=== PATIENT | female | born 1940 | race Caucasian/White ===

== ENCOUNTER 2016-05-04 08:24 | Inpatient (IN) | payer MEDICARE, MEDICAID ==
[~2016-05-04] VITALS: Ht 160 cm; Wt 61.8 kg
[2016-05-04] MEDS ORDERED: OS500 PO (09:05)
[2016-05-04] MEDS ORDERED: MULT-1192 PO (09:05)
[2016-05-04] MEDS ORDERED: MOME17N NASAL (09:05)
[2016-05-04] MEDS ORDERED: NAPR250T2 PO (09:05)
[2016-05-04] MEDS ORDERED: FURO20 PO (09:05)
[2016-05-04] MEDS ORDERED: OMEP20 PO (09:05)
[2016-05-04] MEDS ORDERED: ALBU8HFA IH (09:05)
[2016-05-04] MEDS ORDERED: DULO30CA2 PO (09:05)
[2016-05-04] MEDS ORDERED: RANI150T7 PO (09:05)
[2016-05-04 09:51] LABS: BASOPHILS % (AUTO) 1.2 % (0.0-2.0); EOSINOPHILS % (AUTO) 6.9 % (1.0-6.0); HEMATOCRIT 39.8 % (36-46); LYMPHOCYTES # (AUTO) 1.3 K/uL (1.0-4.8); LYMPHOCYTES % (AUTO) 24.1 % (22.0-44.0); MEAN CORPUSCULAR HEMOGLOBIN 32.3 pg (26.0-34.0); MEAN CORPUSCULAR HGB CONC 32.7 G/dL (31.0-37.0); MEAN CORPUSCULAR VOLUME 99 fL (80-100); MONOCYTES # (AUTO) 0.7 K/uL (0.1-1.0); MONOCYTES % (AUTO) 13.5 % (2.0-9.0); NEUTROPHILS # (AUTO) 2.9 K/uL (1.8-7.7); NEUTROPHILS % (AUTO) 54.3 % (40.0-70.0); PLATELET COUNT (AUTO) 412 K/uL (150-450); RED BLOOD CELL COUNT(AUTO) 4.03 MIL/uL (4.00-5.20); RED CELL DISTRIBUTION WIDTH 15.5 % (11.5-14.5); WHITE BLOOD COUNT (AUTO) 5.3 K/uL (4.5-11.0)
[2016-05-04 10:03] LABS: ANION GAP 10 mmol/L (8-16); CALCIUM, TOTAL 8.4 mg/dL (8.8-10.5); CARBON DIOXIDE 27 mmol/L (22-29); CHLORIDE 100 mmol/L (98-107); CREATININE 0.61 mg/dL (0.60-1.30); GLOMERULAR FILTR. RATE CALC > 60 mL/min (>60); POTASSIUM 3.6 mmol/L (3.5-5.1); SODIUM SERUM 137 mmol/L (136-145); UREA NITROGEN, BLOOD 6 mg/dL (7-18)
[2016-05-04 10:10] LABS: ALANINE AMINOTRANSFERASE 25 U/L (12-78); ALBUMIN 3.3 g/dL (3.4-5.0); ASPARTATE AMINOTRANSFERASE 35 U/L (15-37); BILIRUBIN,TOTAL 0.9 mg/dL (0.1-1.0); TOTAL PROTEIN, SERUM 7.8 g/dL (6.4-8.2)
[2016-05-04] MEDS ORDERED: HALOPERIDOL LACTATE 5 MG/ML VIAL IM ONE (10:15)
[2016-05-04] MEDS ORDERED: LORazepam 2 MG/ML VIAL IM ONE (10:15)
[2016-05-04] MEDS ORDERED: HALOPERIDOL 5 MG TABLET PO PRN (11:45)
[2016-05-04 14:56] LABS: GLUCOSE,POINT OF CARE 103 MG/DL (70-110)
[2016-05-04 17:02] LABS: GLUCOSE,POINT OF CARE 99 MG/DL (70-110)
[2016-05-04] MEDS: ZOLPIDEM TARTRATE 10 MG TABLET PO PRN (22:52)
[2016-05-04] MEDS: LORazepam 2 MG TABLET PO PRN (22:52)
[2016-05-05 00:05] LABS: APPEARANCE,URINE CLOUDY (CLEAR); GLUCOSE, URINE (UA) NEGATIVE (NEGATIVE); KETONES,URINE NEGATIVE (NEGATIVE); LEUKOCYTE ESTERASE ,URINE LARGE (NEGATIVE); OCCULT BLOOD,URINE NEGATIVE (NEGATIVE); PROTEIN,URINE TRACE (NEGATIVE)
[2016-05-05 00:06] LABS: ADD UA MICROSCOPIC YES
[2016-05-05 00:21] LABS: RBC,URINE 0-2 /HPF (0-2); SQUAMOUS EPITHELIAL CELL,UR Moderate /LPF (None Seen)
[2016-05-05 02:04] VITALS: BP 124/74
[2016-05-05] MEDS ORDERED: PNEUMOCOCCAL VACCINE POLYVALENT 0.5 ML VIAL [PPSV23] IM ONE (02:15)
[2016-05-05] MEDS ORDERED: INFLUENZA VIRUS VACCINE QVS 2016-17 (3YR+)/PF 60 MCG/0.5 ML SYRINGE IM ONE (02:15)
[2016-05-05 08:46] VITALS: BP 135/72
[2016-05-05] MEDS: CEPHALEXIN MONOHYDRATE 500 MG CAPSULE PO SCH ×2 (16:31→20:33)
[2016-05-05] MEDS: SULFAMETHOX/TRIMETH DS 800-160 MG/TABLET PO SCH (16:32)
[2016-05-05] MEDS: DIVALPROEX SODIUM 500 MG DR TABLET PO SCH (16:32)
[2016-05-05] MEDS: RisperiDONE 1 MG TABLET PO SCH (16:33)
[2016-05-05 18:15] VITALS: BP 100/60
[2016-05-05] MEDS: LOPERAMIDE HCL 2 MG CAPSULE PO PRN (18:27)
[2016-05-05 21:27] VITALS: BP 142/79
[2016-05-05] MEDS: IBUPROFEN 400 MG TABLET PO PRN (21:30)
[2016-05-05] MEDS: ZOLPIDEM TARTRATE 10 MG TABLET PO PRN (23:01)
[2016-05-06] MEDS: LORazepam 2 MG TABLET PO PRN ×2 (02:03→16:14)
[2016-05-06] MEDS: DIVALPROEX SODIUM 500 MG DR TABLET PO SCH ×3 (08:39→17:00)
[2016-05-06] MEDS: CEPHALEXIN MONOHYDRATE 500 MG CAPSULE PO SCH ×4 (08:40→21:21)
[2016-05-06] MEDS: RisperiDONE 1 MG TABLET PO SCH ×2 (08:40→17:00)
[2016-05-06] MEDS: SULFAMETHOX/TRIMETH DS 800-160 MG/TABLET PO SCH ×2 (08:40→16:14)
[2016-05-06] MEDS: ZOLPIDEM TARTRATE 10 MG TABLET PO PRN (22:38)
[2016-05-07] MEDS: DIVALPROEX SODIUM 500 MG DR TABLET PO SCH ×3 (09:00→16:31)
[2016-05-07] MEDS: RisperiDONE 1 MG TABLET PO SCH ×3 (09:00→16:30)
[2016-05-07] MEDS: SULFAMETHOX/TRIMETH DS 800-160 MG/TABLET PO SCH ×2 (10:09→16:29)
[2016-05-07] MEDS: CEPHALEXIN MONOHYDRATE 500 MG CAPSULE PO SCH ×4 (10:10→20:17)
[2016-05-07] MEDS ORDERED: LOPERAMIDE HCL 2 MG CAPSULE PO PRN (10:30)
[2016-05-07] MEDS ORDERED: POTASSIUM CHLORIDE 20 MEQ ER TABLET PO ONE (15:30)
[2016-05-07 16:20] VITALS: BP 132/79
[2016-05-07] MEDS: LOPERAMIDE HCL 2 MG CAPSULE PO PRN (16:29)
[2016-05-08 00:01] VITALS: BP 147/88
[2016-05-08] MEDS: ZOLPIDEM TARTRATE 10 MG TABLET PO PRN (01:05)
[2016-05-08] MEDS: IBUPROFEN 400 MG TABLET PO PRN ×2 (02:00→13:55)
[2016-05-08] MEDS: DIVALPROEX SODIUM 500 MG DR TABLET PO SCH ×2 (09:00→16:25)
[2016-05-08] MEDS: RisperiDONE 1 MG TABLET PO SCH ×2 (09:00→16:25)
[2016-05-08 09:01] VITALS: BP 127/76
[2016-05-08] MEDS: SULFAMETHOX/TRIMETH DS 800-160 MG/TABLET PO SCH ×2 (09:02→16:27)
[2016-05-08] MEDS: CEPHALEXIN MONOHYDRATE 500 MG CAPSULE PO SCH ×4 (09:02→20:12)
[2016-05-08] MEDS: FUROSEMIDE 40 MG TABLET PO SCH (09:02)
[2016-05-08] MEDS ORDERED: ONDANSETRON HCL 4 MG TABLET PO PRN (10:00)
[2016-05-08 20:35] VITALS: BP 138/80
[2016-05-09 00:28] VITALS: BP 129/79
[2016-05-09] MEDS: IBUPROFEN 400 MG TABLET PO PRN (00:28)
[2016-05-09 08:00] VITALS: BP 142/74
[2016-05-09] MEDS: CEPHALEXIN MONOHYDRATE 500 MG CAPSULE PO SCH ×4 (08:34→20:14)
[2016-05-09] MEDS: SULFAMETHOX/TRIMETH DS 800-160 MG/TABLET PO SCH ×2 (08:34→16:32)
[2016-05-09] MEDS: RisperiDONE 1 MG TABLET PO SCH ×4 (08:34→17:00)
[2016-05-09] MEDS: FUROSEMIDE 40 MG TABLET PO SCH (08:34)
[2016-05-09] MEDS: DIVALPROEX SODIUM 500 MG DR TABLET PO SCH ×2 (08:39→17:00)
[2016-05-09 16:44] VITALS: BP 125/76
[2016-05-09] MEDS ORDERED: RISP1 PO (19:00)
[2016-05-09] MEDS ORDERED: DIVA500T35 PO (19:00)
[2016-05-10 03:50] VITALS: BP 131/77
[2016-05-10] MEDS ORDERED: CEPH500 PO (08:39)
[2016-05-10] MEDS ORDERED: SULF1TAB42 PO (08:39)
[2016-05-10] MEDS: FUROSEMIDE 40 MG TABLET PO SCH (08:56)
[2016-05-10] MEDS: DIVALPROEX SODIUM 500 MG DR TABLET PO SCH ×2 (08:56→08:59)
[2016-05-10] MEDS: CEPHALEXIN MONOHYDRATE 500 MG CAPSULE PO SCH (08:56)
[2016-05-10] MEDS: RisperiDONE 1 MG TABLET PO SCH ×2 (08:56→08:59)
[2016-05-10] MEDS: SULFAMETHOX/TRIMETH DS 800-160 MG/TABLET PO SCH (08:56)
[2016-05-10 10:38] VITALS: BP 147/86
== END 2016-05-10 12:25 | disposition home or self-care (01) | DRG 750 ==
LOC: EMS 08:25 → 3EC 05-05 00:52 → 3EI 05-07 22:08
PROVIDERS: ADMIT Psychiatry & Neurology Psychiatry; ATTEND Psychiatry & Neurology Psychiatry
DX: F25.9 Schizoaffective disorder, unspecified (principal); L03.115 Cellulitis of right lower limb; G62.9 Polyneuropathy, unspecified; F20.0 Paranoid schizophrenia; F17.210 Nicotine dependence, cigarettes, uncomplicated; L03.116 Cellulitis of left lower limb; Z78.1 Physical restraint status; Z59.9 Problem related to housing and economic circumstances, unspecified; Z79.899 Other long term (current) drug therapy; Z98.51 Tubal ligation status; Z28.21 Immunization not carried out because of patient refusal
CPT/HCPCS: 82962; 87086; 93970; 96372; 99285; G0480; J1630; J2060

== ENCOUNTER 2021-05-26 17:42 | Emergency (ER) | payer MEDICARE, OTHER ==
[~2021-05-26] VITALS: Ht 172.7 cm; Wt 52.3 kg
[~2021-05-26 17:42] MED LIST: CEPH-558 PO; DIVA-112 PO; FURO20 PO; RISP1TAB48 PO; SULF1TAB42 PO
[2021-05-26] MEDS ORDERED: HYDROCODONE/ACETAMINOPHEN 5-325 MG TABLET PO ONE ×2 (19:00→23:15)
[2021-05-26] MEDS ORDERED: ACETAMINOPHEN 500 MG TABLET PO ONE (19:00)
[2021-05-26 19:14] LABS: EOSINOPHILS % (AUTO) 4.8 % (1.0-6.0); HEMATOCRIT 35.8 % (36-46); HEMOGLOBIN 12.2 g/dL (12.0-16.0); LYMPHOCYTES # (AUTO) 1.5 K/uL (1.0-4.8); LYMPHOCYTES % (AUTO) 28.8 % (22.0-44.0); MEAN CORPUSCULAR HEMOGLOBIN 32.6 pg (26.0-34.0); MEAN CORPUSCULAR HGB CONC 34.1 G/dL (31.0-37.0); MEAN CORPUSCULAR VOLUME 96 fL (80-100); MONOCYTES # (AUTO) 0.7 K/uL (0.1-1.0); MONOCYTES % (AUTO) 13.4 % (2.0-9.0); NEUTROPHILS # (AUTO) 2.7 K/uL (1.8-7.7); PLATELET COUNT (AUTO) 250 K/uL (150-450); RED BLOOD CELL COUNT(AUTO) 3.75 MIL/uL (4.00-5.20); RED CELL DISTRIBUTION WIDTH 13.5 % (11.5-14.5)
[2021-05-26 19:25] LABS: ANION GAP 8 mmol/L (8-16); CALCIUM, TOTAL 8.4 mg/dL (8.8-10.5); CARBON DIOXIDE 26 mmol/L (22-29); CHLORIDE 101 mmol/L (98-107); CREATININE 0.56 mg/dL (0.60-1.30); GLUCOSE,RANDOM 79 mg/dL (70-110); POTASSIUM 3.5 mmol/L (3.5-5.1); SODIUM SERUM 135 mmol/L (136-145); UREA NITROGEN, BLOOD 8 mg/dL (7-18)
[2021-05-26 19:27] LABS: GLOMERULAR FILTR. RATE CALC > 60 mL/min (>60)
[2021-05-26] MEDS ORDERED: GABAPENTIN 100 MG CAPSULE PO ONE (23:15)
[2021-05-27 11:48] VITALS: BP 115/66
== END 2021-05-27 13:56 | disposition home or self-care (01) ==
LOC: EMS 17:42
DX: R60.0 Localized edema (principal); I87.8 Other specified disorders of veins; F17.290 Nicotine dependence, other tobacco product, uncomplicated; Z59.00 Homelessness unspecified; Z79.899 Other long term (current) drug therapy
CPT/HCPCS: 80048; 85025; 99285

== ENCOUNTER 2021-05-27 17:05 | Emergency (ER) | payer MEDICARE, OTHER ==
[~2021-05-27] VITALS: Ht 152.4 cm; Wt 51.4 kg
[2021-05-27 21:00] VITALS: BP 141/95
== END 2021-05-27 21:49 | disposition home or self-care (01) ==
LOC: EMS 17:05
DX: M25.551 Pain in right hip (principal); F17.210 Nicotine dependence, cigarettes, uncomplicated; Z79.899 Other long term (current) drug therapy
CPT/HCPCS: 73502; 99283